=== PATIENT | male | born 1960 | race Caucasian/White ===

== ENCOUNTER 2024-10-22 08:49 | Emergency (ER) | payer MEDICARE, OTHER ==
[~2024-10-22] VITALS: Ht 182.9 cm; Wt 112.0 kg
--- OUTSIDE RECORDS SUMMARY | 2024-10-22 08:51 | XMS ---
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 Tavia VISIT COUNT (12 MO.) [address] [place] TOTAL 26 NOTE: Visits indicate total known visits. ED/UCC VISIT TRACKING (12 MO.) 10/22/2024 08:49 [facility] [place] TYPE: Emergency COMPLAINT: - SEIZURE 09/06/2024 09:12 [facility] [place] TYPE: Emergency DIAGNOSES: - Homelessness unspecified - Low back pain, unspecified - Other chronic pain - Postconcussional syndrome - Viral infection, unspecified - BACK PAIN 09/05/2024 21:56 [facility] [place] TYPE: Emergency DIAGNOSES: - Abrasion of other part of head, initial encounter - Contusion of eyeball and orbital tissues, right eye, initial encounter - Contusion of right eyelid and periocular area, initial encounter - Epilepsy, unspecified, not intractable, without status epilepticus - Laceration without foreign body of other part of head, initial encounter - HEAD PAIN; BACK PAIN - seizure - seziure 09/05/2024 03:04 [facility] [place] TYPE: Emergency DIAGNOSES: - COVID-19 - Disorientation, unspecified - HALLUCINATIONS 09/04/2024 01:22 [facility] [place] TYPE: Emergency DIAGNOSES: - Unspecified convulsions - Seizures 08/28/2024 18:39 [facility] [place] TYPE: Emergency DIAGNOSES: - Acute cough - Lobar pneumonia, unspecified organism - Other viral infections of unspecified site - FLU LIKE SYMPTOMS 08/25/2024 15:48 [facility] [place] TYPE: Emergency DIAGNOSES: - Epilepsy, unspecified, not intractable, without status epilepticus - Homelessness unspecified - Nicotine dependence, unspecified, uncomplicated - Other viral infections of unspecified site - Seizure 08/19/2024 13:01 [facility] [place] TYPE: Emergency DIAGNOSES: - Personal history of other specified conditions - SEIZURE 08/18/2024 15:14 [facility] [place] TYPE: Emergency DIAGNOSES: - Laceration without foreign body of left forearm, initial encounter - Unspecified convulsions - SEIZURE 08/17/2024 07:24 [facility] [place] TYPE: Emergency DIAGNOSES: - Hypoglycemia, unspecified - Unspecified convulsions - NOT FEELING WELL 08/12/2024 07:19 [facility] [place] TYPE: Emergency DIAGNOSES: - Epilepsy, unspecified, not intractable, without status epilepticus - SEIZURE 08/11/2024 16:13 [facility] [place] TYPE: Emergency DIAGNOSES: - Hypoglycemia, unspecified - Unspecified convulsions - POSSIBLE SEIZURE 08/05/2024 19:26 [facility] [place] TYPE: Emergency DIAGNOSES: - Epilepsy, unspecified, intractable, without status epilepticus - SEIZURE 07/29/2024 19:13 [facility] [place] TYPE: Emergency DIAGNOSES: - Encounter for issue of repeat prescription - Nausea - Medication Refill 07/27/2024 07:17 [facility] [place] TYPE: Emergency DIAGNOSES: - Dizziness and giddiness - Homelessness unspecified - Hypocalcemia - Hypoglycemia, unspecified - DIZZY 07/25/2024 07:24 [facility] [place] TYPE: Emergency DIAGNOSES: - Epilepsy, unspecified, not intractable, without status epilepticus - NOT FEELING WELL 07/23/2024 18:14 [facility] [place] TYPE: Emergency DIAGNOSES: - Unspecified convulsions - SEIZURE 07/20/2024 19:05 [facility] DIAGNOSES: - Acute upper respiratory infection, unspecified - Dizzy 07/19/2024 19:16 [facility] [place] TYPE: Emergency DIAGNOSES: - Epilepsy, unspecified, intractable, without status epilepticus - SEIZURES 07/17/2024 18:48 [facility] [place] TYPE: Emergency DIAGNOSES: - Epilepsy, unspecified, not intractable, without status epilepticus - GENERAL Plus 6 More Visits INPATIENT VISIT TRACKING (12 MO.) 11/10/2023 18:[facility] TYPE: General Medicine COMPLAINT: - SZ DIAGNOSES: - Epilepsy, unspecified, intractable, without status epilepticus - Epilepsy, unspecified, intractable, without status epilepticus [email or web address]
[2024-10-22] MEDS ORDERED: levETIRAcetam 500 MG/5 ML VIAL IV ONE ×2 (08:58→09:15)
[2024-10-22 09:11] LABS: BASOPHILS 0.7 % (0-2); HEMATOCRIT 32.4 % (35.0-50.0); HEMOGLOBIN 10.8 g/dL (12.0-18.0); LYMPHOCYTES 32.2 % (24-44); MCH 28.8 (27-36); MCHC 33.2 g/dl (30-36); MCV 86.8 fl (81-99); MONOCYTES 7.1 % (0-12); PLATELET COUNT 363 K/uL (140-440); RBC 3.73 M/ul (4.3-5.7); RDW 14.9 (10.5-15.0)
[2024-10-22] MEDS ORDERED: SODIUM CHLORIDE 0.9% 1,000 ML IV PRN (09:15)
[2024-10-22] MEDS ORDERED: LORazepam 2 MG/ML VIAL IV ONE ×2 (09:15)
[2024-10-22 09:30] LABS: ALBUMIN 3.3 g/dL (3.4-5.0); ALBUMIN/GLOBULIN RATIO 1.06 (1.1-2.4); ALCOHOL, MEDICAL <3 ng/dL (<3); ALKALINE PHOSPHATASE 105 U/L (46-116); ALT (SGPT) 30 U/L (14-59); ANION GAP 15.2 (7-21); AST (SGOT) 39 U/L (15-37); BILIRUBIN, TOTAL 0.3 mg/dL (0.2-1.0); BUN/CREATININE RATIO 10.06 (6.0-28.6); CALCIUM 8.1 mg/dL (8.5-10.1); CARBON DIOXIDE 24 mmol/L (21-32); CHLORIDE 103 mmol/L (98-107); CREATININE, SERUM 1.49 mg/dL (0.70-1.30); GLOMERULAR FILTRATION RATE,EST 52 mL/min (>60); MAGNESIUM 2.4 mg/dL (1.8-2.4); POTASSIUM 3.2 mmol/L (3.5-5.1); PROTEIN, TOTAL 6.4 g/dL (6.4-8.2); UREA NITROGEN 15 mg/dL (7-18)
[2024-10-22 10:39] LABS: BILIRUBIN, URINE NEGATIVE (negative); BLOOD/HGB, URINE NEGATIVE (Negative); KETONE, URINE NEGATIVE (Negative); LEUK ESTERASE, URINE NEGATIVE (negative); NITRITE, URINE NEGATIVE (negative)
[2024-10-22 10:46] LABS: EPITHELIAL CELLS, URINE SQUAMOUS 1+ /lpf (0-1+)
[2024-10-22 10:49] LABS: BACTERIA, URINE NONE SEEN /hpf (negative); CASTS, URINE NONE SEEN \\lpf; COLLECTION TYPE, URINE CLEAN CATCH; CRYSTALS, URINE CALCIUM OXALATE 1+ (0-1+); RED BLOOD CELLS, URINE 0-1 /hpf (0-5); REFLEX CULTURE, URINE No (No); WHITE BLOOD CELLS, URINE 0-1 /HPF (0-5)
[2024-10-22 10:53] LABS: AMPHETAMINES, URINE NEGATIVE (NEGATIVE); BARBITURATES, URINE NEGATIVE (NEGATIVE); BENZODIAZEPINE, URINE NEGATIVE (NEGATIVE); BUPRENORPHINE, URINE NEGATIVE (NEGATIVE); CANNABINOID, URINE NEGATIVE (NEGATIVE); COCAINE, URINE NEGATIVE (NEGATIVE); ECSTASY, URINE NEGATIVE (NEGATIVE); FENTANYL, URINE NEGATIVE (NEGATIVE); METHADONE, URINE NEGATIVE (NEGATIVE); OPIATES, URINE NEGATIVE (NEGATIVE); OXYCODONE, URINE NEGATIVE (NEGATIVE); PHENCYCLIDINE, URINE NEGATIVE (NEGATIVE)
[2024-10-22 16:15] VITALS: BP 138/100
== END 2024-10-22 16:15 | disposition home or self-care (01) ==
LOC: ED 08:49
PROVIDERS: Emergency Medicine
DX: G40.909 Epilepsy, unspecified, not intractable, without status epilepticus (principal); S00.03XA Contusion of scalp, initial encounter; S00.81XA Abrasion of other part of head, initial encounter; Z79.899 Other long term (current) drug therapy; W19.XXXA Unspecified fall, initial encounter
CPT/HCPCS: 36415; 70450; 71045; 72100; 72125; 80053; 80307; 81001; 83735; 84484; 85025; 96374; 96375; 99284-25; G0480; J1953; J2060; J7030

== ENCOUNTER 2024-11-02 11:55 | Emergency (ER) | payer MEDICARE, OTHER ==
[~2024-11-02] VITALS: Ht 182.9 cm; Wt 88.0 kg
--- OUTSIDE RECORDS SUMMARY | 2024-11-02 12:01 | XMS ---
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 Security Events currently on file CRITERIA MET - 6 ED Visits in 6 Months - [facility] - 2 Visits in 30 Days CARE PROVIDERS PRAVEEN HENDRICKS Community Health Worker 08/27/2022-Current PHONE: [phone] PAUL ADEN Physician Motorcycle Designer [facility] PHONE: [phone] ROMA WHEELER Nurse Practitioner: Adult Health [facility] PHONE: [phone] MARILYN FUCHS Internal Medicine Current PHONE: [phone] CHERYL SOLITARIO Nurse Practitioner: Current PHONE: [phone] [facility] Clinic/Center: [facility] Qualified [facility] Current WORKERS CLINIC \[facility] ([facility]) <UNAVAIL> PHONE: [phone] Lilo has no Care Guidelines for this patient. Tavia VISIT COUNT (12 MO.) [address] [place] TOTAL 27 NOTE: Visits indicate total known visits. ED/UCC VISIT TRACKING (12 MO.) 11/02/2024 11:55 [facility] [place] TYPE: Emergency COMPLAINT: - SEIZURE 10/22/2024 08:49 [facility] [place] TYPE: Emergency COMPLAINT: - SEIZURE DIAGNOSES: - Abrasion of other part of head, initial encounter - Contusion of scalp, initial encounter - Epilepsy, unspecified, not intractable, without status epilepticus - Other intermediate (current) drug therapy - Unspecified fall, initial encounter 09/06/2024 09:12 [facility] [place] TYPE: Emergency DIAGNOSES: - Homelessness unspecified - Low back pain, unspecified - Other chronic pain - Postconcussional syndrome - Viral infection, unspecified - BACK PAIN 09/05/2024 21:56 [facility] [place] TYPE: Emergency DIAGNOSES: - Abrasion of [...] PAIN - seizure - seziure 09/05/2024 03:04 [facility] [place] TYPE: Emergency DIAGNOSES: - COVID-19 - Disorientation, unspecified - HALLUCINATIONS 09/04/2024 01:22 [facility] [place] TYPE: Emergency DIAGNOSES: - Unspecified convulsions - Seizures 08/28/2024 18:39 [facility] [place] TYPE: Emergency DIAGNOSES: - Acute cough - Lobar pneumonia, unspecified organism - Other viral infections of unspecified site - FLU LIKE SYMPTOMS 08/25/2024 15:48 [facility] [place] TYPE: Emergency DIAGNOSES: - Epilepsy, unspecified, not intractable, without status epilepticus - Homelessness unspecified - Nicotine dependence, unspecified, uncomplicated - Other viral infections of unspecified site - Seizure 08/19/2024 13:01 [facility] [place] TYPE: Emergency DIAGNOSES: - Personal history of other specified conditions - SEIZURE 08/18/2024 15:14 [facility] [place] TYPE: Emergency DIAGNOSES: - Laceration without foreign body of left forearm, initial encounter - Unspecified convulsions - SEIZURE 08/17/2024 07:24 [facility] [place] TYPE: Emergency DIAGNOSES: - Hypoglycemia, unspecified - Unspecified convulsions - NOT FEELING WELL 08/12/2024 07:19 [facility] [place] TYPE: Emergency DIAGNOSES: - Epilepsy, unspecified, not intractable, without status epilepticus - SEIZURE 08/11/2024 16:13 [facility] [place] TYPE: Emergency DIAGNOSES: - Hypoglycemia, unspecified - Unspecified convulsions - POSSIBLE SEIZURE 08/05/2024 19:26 [facility] DIAGNOSES: - Epilepsy, unspecified, intractable, without status epilepticus - SEIZURE 07/29/2024 19:13 [facility] [place] TYPE: Emergency DIAGNOSES: - Encounter for issue of repeat prescription - Nausea - Medication Refill 07/27/2024 07:17 [facility] [place] TYPE: Emergency DIAGNOSES: - Dizziness and giddiness - Homelessness unspecified - Hypocalcemia - Hypoglycemia, unspecified - DIZZY 07/25/2024 07:24 [facility] [place] TYPE: Emergency DIAGNOSES: - Epilepsy, unspecified, not intractable, without status epilepticus - NOT FEELING WELL 07/23/2024 18:14 [facility] [place] TYPE: Emergency DIAGNOSES: - Unspecified convulsions - SEIZURE 07/20/2024 19:05 [facility] [place] TYPE: Emergency DIAGNOSES: - Acute upper respiratory infection, unspecified - Dizzy 07/19/2024 19:16 [facility] [place] TYPE: Emergency DIAGNOSES: - Epilepsy, unspecified, intractable, without status epilepticus - SEIZURES Plus 7 More Visits INPATIENT VISIT TRACKING (12 MO.) 11/10/2023 18:[facility] TYPE: General Medicine COMPLAINT: - SZ DIAGNOSES: - Epilepsy, unspecified, intractable, without status epilepticus - Epilepsy, unspecified, intractable, without status epilepticus [email or web address]
[2024-11-02] MEDS ORDERED: LEVETIRACETAM1000 MG PO (12:42)
[2024-11-02 13:03] LABS: BASOPHILS 0.4 % (0-2); EOSINOPHILS 0.9 % (0-6); HEMATOCRIT 35.6 % (35.0-50.0); HEMOGLOBIN 11.7 g/dL (12.0-18.0); LYMPHOCYTES 31.7 % (24-44); MCH 28.2 (27-36); MCHC 32.7 g/dl (30-36); MCV 86.1 fl (81-99); MONOCYTES 12.4 % (0-12); NEUTROPHILS 54.6 % (39-80); PLATELET COUNT 299 K/uL (140-440); RBC 4.14 M/ul (4.3-5.7); RDW 14.7 (10.5-15.0)
[2024-11-02 13:17] LABS: ALBUMIN 3.5 g/dL (3.4-5.0); ALBUMIN/GLOBULIN RATIO 0.97 (1.1-2.4); ANION GAP 11.4 (7-21); BILIRUBIN, TOTAL 0.3 mg/dL (0.2-1.0); BUN/CREATININE RATIO 6.19 (6.0-28.6); CALCIUM 8.6 mg/dL (8.5-10.1); CREATININE, SERUM 1.13 mg/dL (0.70-1.30); POTASSIUM 3.4 mmol/L (3.5-5.1); PROTEIN, TOTAL 7.1 g/dL (6.4-8.2)
[2024-11-02] MEDS ORDERED: levETIRAcetam 500 MG TAB PO ONE (13:30)
[2024-11-02 13:51] VITALS: BP 166/99
== END 2024-11-02 13:51 | disposition home or self-care (01) ==
LOC: ED 11:55
PROVIDERS: Emergency Medicine
DX: G40.909 Epilepsy, unspecified, not intractable, without status epilepticus (principal); Z59.00 Homelessness unspecified; Z79.899 Other long term (current) drug therapy
CPT/HCPCS: 36415; 80053; 85025; 99284